=== PATIENT | female | born 1935 | race American Indian/Alaskan Native ===

== ENCOUNTER 2019-02-10 21:16 | Emergency (ER) | payer MEDICARE ==
[2019-02-10 21:38] VITALS: BP 123/89
[2019-02-10 22:12] LABS: Hematocrit 39.1 % (30.3-42.9); Mean Corpuscular HGB Conc 33 % (30-34); Mean Corpuscular Volume 105 fl (79-97); Platelet Count 190 K/mm3 (140-440); Red Blood Count 3.72 M/mm3 (3.65-5.03); Red Cell Distribution Width 13.3 % (13.2-15.2)
[2019-02-10 22:29] LABS: Alanine Aminotransferase 17 units/L (7-56); Albumin 4.1 g/dL (3.9-5); BUN/Creatinine Ratio 36; Blood Urea Nitrogen 18 mg/dL (7-17); Calcium 9.3 mg/dL (8.4-10.2); Hemolysis Index 12
[2019-02-10 22:42] LABS: Basophils % (Manual) 0 % (0.0-1.8); Total Cells Counted 100
[2019-02-10 22:43] LABS: Anisocytosis Few; Platelet Estimate Consistent w Auto
--- NOTE | 2019-02-10 22:44 | Cat Scan Report ---
CT HEAD WITHOUT CONTRAST INDICATION : Syncope. TECHNIQUE: Axial, coronal and sagittal CT imaging was performed from the skull apex through the skul l base without contrast. All CT scans at this location are performed using CT dose reduction for ALA RA by means of automated exposure control. COMPARISON: None available. FINDINGS: PARENCHYMA: No mass, midline shift, hemorrhage, extraaxial collection or acute territorial infarctio n. There is age-appropriate generalized atrophy. Areas of low-attenuation along the periventricular w priscilla matter likely represent chronic microvascular ischemic changes. VENTRICLES: Enlarged secondary to atrophy. No acute abnormality. SOFT TISSUES: Soft tissues including the orbits appear normal. BONES: No acute osseous abnormality. SINUSES: No significant abnormality. ADDITIONAL FINDINGS: None. IMPRESSION: 1. No acute abnormality. 2. Additional findings as above. Signer Name: Chris Root MD Signed: 02/10/2019 10:40 PM Workstation Name: [id number]
--- NOTE | 2019-02-10 22:57 | Emergency Department Report ---
HPI - General Chief Complaint: Fall Time Seen by Provider: 02/10/19 21:31 - HPI HPI: 84-year-old female presents to the emergency department with the complaint of getting dizzy and having a near syncopal episode. She says that she was eating some food and then went to sit on the bed and became very fatigued. Her son came up and found her laying back on the bed and she appeared to have either passed out or was sleeping. He woke her up and says that she was a little groggy but otherwise did not have any slurred speech or obvious con fusion. She denies any vision change, slurred speech or any other neurological deficits. 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 She goes to [facility] for PCP. ED Past Medical Hx - Past Medical History Previous Medical History?: Yes Hx Hypertension: Yes Hx Diabetes: Yes - Surgical History Past Surgical History?: No - Social History Smoking Status: Never Smoker Substance Use Type: None ED Review of Systems ROS: Stated complaint: SYNCOPE/WEAKNESS Other details as noted in HPI Comment: All other systems reviewed and negative Constitutional: denies: chills, fever Eyes: denies: eye pain, vision change ENT: denies: ear pain, throat pain Respiratory: denies: cough, shortness of breath Cardiovascular: denies: chest pain, palpitations Gastrointestinal: denies: abdominal pain, vomiting Genitourinary: denies: dysuria, discharge Musculoskeletal: denies: back pain, arthralgia Skin: denies: rash, lesions Neurological: headache. denies: weakness, numbness, paresthesias, confusion Physical Exam - Physical Exam Vital Signs: Vital Signs 02/10/19 21:35 Temperature 98.0 F Pulse Rate 72 Respiratory 18 Rate Blood Pressure 123/89 O2 Sat by Pulse 98 Oximetry Physical Exam: GENERAL: The patient is well-developed well-nourished. HENT: Normocephalic. Atraumatic. Patient has moist mucous membranes. EYES: Extraocular motions are intact. Pupils equal reactive to light bilaterally. No nystagmus. NECK: Supple. Trachea is midline. CHEST/LUNGS: Clear to auscultation. There is no respiratory distress noted. HEART/CARDIOVASCULAR: Regular. There is no tachycardia. There is no murmur. ABDOMEN: Abdomen is soft, nontender. Patient has normal bowel sounds. There is no abdominal distention. SKIN: Skin is warm and dry. NEURO: The patient is awake, alert, and cooperative. The patient has no focal neurologic deficits. Normal speech. Cranial nerves II through XII grossly intact. No facial asymmetry. No pronator drift. No dysmetria. MUSCULOSKELETAL: There is no tenderness or deformity. There is no limitation range of motion. There is no evidence of acute injury. ED Course Vital Signs 02/10/19 21:35 Temperature 98.0 F Pulse Rate 72 Respiratory 18 Rate Blood Pressure 123/89 O2 Sat by Pulse 98 Oximetry ED Medical Decision Making - Lab Data Result diagrams: 02/10/19 21:48 02/10/19 21:48 - EKG Data -: EKG Interpreted by Nm EKG shows normal: sinus rhythm, axis, intervals, QRS complexes, ST-T waves Rate: normal - EKG Data When compared to previous EKG there are: previous EKG unavailable Interpretation: normal EKG - Radiology Data Radiology results: report reviewed CT HEAD WITHOUT CONTRAST INDICATION : Syncope. TECHNIQUE: Axial, coronal and sagittal CT imaging was performed from the skull apex through the skull base without contrast. All CT scans at this location are performed using CT dose reduction for ALARA by means of automated exposure control. COMPARISON: None available. FINDINGS: PARENCHYMA: No mass, midline shift, hemorrhage, extraaxial collection or acute territorial infarction. There is age-appropriate generalized atrophy. Areas of low-attenuation along the periventricular white matter likely represent chronic microvascular ischemic changes. VENTRICLES: Enlarged secondary to atrophy. No acute abnormality. SOFT TISSUES: Soft tissues including the orbits appear normal. BONES: No acute osseous abnormality. SINUSES: No significant abnormality. ADDITIONAL FINDINGS: None. IMPRESSION: 1. No acute abnormality. 2. Additional findings as above. - Medical Decision Making This patient presents after having some type of a near syncopal episode. She sa ys that she remembers everything up to sitting on her bed. She was found laying on the bed either having passed out or sleeping. However when she was "woken up" she did not have any obvious deficits. Since being in the emergency department she is awake, alert and at her baseline mental status. Her only complaint is that she feels fatigued. A CT scan of the head was completed that does not show any bleed, shift, mass, ischemia, or any other acute process. On examination she does not have any focal, motor or sensory deficits in her cranial nerves are intact. Labs have been unremarkable including CBC, metabolic panel, troponin, urinalysis. Her vital signs stable throughout her ED course. The patient has been reevaluated multiple times over multiple hours and there has been no recurrence of her previous symptoms. For all these reasons patient appears safe for discharge home at this time. She has been instructed to follow up with her primary care physician and to return to the emergency department immediately with any return of her symptoms, or if any acute distress. - Differential Diagnosis dysrhythmia, hypoglycemia, TIA, vasovagal, orthostatic hypotension Critical Care Time: No Critical care attestation.: If time is entered above; I have spent that time in minutes in the direct care of this critically ill patient, excluding procedure time. ED Disposition Clinical Impression: Near syncope Fatigue Qualifiers: Fatigue type: unspecified Qualified Code(s): R53.83 - Other fatigue Disposition: DC-01 TO HOME OR SELFCARE Is pt being admited?: No Condition: Stable Instructions: Near Syncope (ED), Dizziness (ED) Additional Instructions: Please follow-up with your primary care physician in the next few days. Return to the emergency Department with any worsening of your symptoms or any acute distress. Referrals: [facility] [Provider Group] - 2-3 Days Time of Disposition: 00:44
[2019-02-10 23:44] LABS: Bacteria,Urine 1+ /HPF (Negative); Bilirubin,Urine NEG (Negative); Blood,Urine NEG (Negative); Color,Urine Yellow (Yellow); Mucus,Urine FEW /HPF; Protein,Urine <15 mg/dL mg/dL (Negative); Urobilinogen,Urine < 2.0 mg/dL (<2.0)
== END 2019-02-11 00:40 | disposition home or self-care (01) ==
LOC: ED 21:16
DX: R42 Dizziness and giddiness (principal); R55 Syncope and collapse; R53.83 Other fatigue; I10 Essential (primary) hypertension; E11.9 Type 2 diabetes mellitus without complications
CPT/HCPCS: 36415; 70450; 80053; 81001; 84443; 84484; 85007; 85025; 93005; 93010